=== PATIENT | male | born 1980 | race Caucasian/White ===

== ENCOUNTER 2020-07-20 09:35 | Inpatient (IN) | payer BC ==
[~2020-07-20] VITALS: Ht 180.3 cm; Wt 94.0 kg
[2020-07-20 09:45] VITALS: BP 132/86
[2020-07-20] MEDS ORDERED: MAG HYDROX/ALUMINUM HYD/SIMETH 30 ML ORAL.SUSP PO PRN (10:15)
[2020-07-20] MEDS ORDERED: CALCIUM CARBONATE 500 MG TAB.CHEW PO PRN (10:15)
[2020-07-20] MEDS ORDERED: BISACODYL 10 MG SUPP.RECT. PR PRN (10:15)
[2020-07-20] MEDS ORDERED: ONDANSETRON PF 4 MG/2 ML VIAL. IVP PRN (10:15)
[2020-07-20] MEDS ORDERED: MAGNESIUM HYDROXIDE 2,400 MG/30 ML ORAL.SUSP. PO PRN (10:15)
[2020-07-20] MEDS ORDERED: ACETAMINOPHEN 325 MG TABLET. PO PRN (10:15)
[2020-07-20] MEDS ORDERED: MORPHINE SULFATE 4 MG/ML VIAL. IV PRN (10:15)
--- NOTE | 2020-07-20 10:24 | PDOC1 ---
History and Physical Date of Admission Date of Admission DATE: 07/20/20 TIME: 10:15 History of Present Illness History of Present Illness Patient is a 40-year-old male past medical history hypertension who presents as transfer from [facility] due to intermittent chest pain for the past month, that is worsened over the past 4 days. He reports sharp intermittent left-sided chest pain, 6/10, that radiates to his left arm and back. Associated diaphoresis and shortness of breath. He was scheduled to have an outpatient stress test on 07/29/2020, but presented to the ER instead for evaluation of his symptoms worsened. EKG reviewed without any noted ST changes. Will admit patient for further medical management. Past Medical History Cardiovascular: HTN Past Surgical History Past Surgical History: No pertinent history Family History Family History: Hypertension Social History Smoke: Quit ALCOHOL: occassional Drugs: None Current Medications Current Medications Current Medications Lorazepam (Ativan Inj) 1 mg 1X ONCE IVP ; Start 07/20/20 at 10:15; Stop 07/20/20 at 10:16 Ondansetron HCl (Zofran) 4 mg PRN Q6HRS PRN IVP NAUSEA/VOMITING; Start 07/20/20 at 10:15; Status UNV Al Hydroxide/Mg Hydroxide (Mylanta Plus Xs) 30 ml PRN Q3HRS PRN PO HEARTBURN / GAS; Start 07/20/20 at 10:15; Status UNV Calcium Carbonate/ Glycine (Tums) 500 mg PRN Q3HRS PRN PO UPSET STOMACH; Start 07/20/20 at 10:15; Status UNV Acetaminophen (Tylenol) 650 mg PRN Q6HRS PRN PO Headaches, Temp > 101.5F; Start 07/20/20 at 10:15; Status UNV Magnesium Hydroxide (Milk Of Magnesia) 2,400 mg PRN Q12HR PRN PO CONSTIPATION; Start 07/20/20 at 10:15; Status UNV Bisacodyl (Dulcolax Supp) 10 mg PRN DAILY PRN [place] CONSTIPATION; Start 07/20/20 at 10:15; Status UNV Allergies Allergies: Coded Allergies: No Known Drug Allergies (Unverified , 07/20/20) ROS Review of System GENERAL: Diaphoresis. No history of weight change, weakness or fevers. SKIN: No bruising, hair changes or rashes. EYES: No blurred, double or loss of vision. NOSE AND THROAT: No history of nosebleeds, hoarseness or sore throat. HEART: Chest pain. Denies palpitations. LUNGS: Denies cough, hemoptysis, wheezing or shortness of breath. GASTROINTESTINAL: Denies nausea, vomiting, abdominal pain. GENITOURINARY: Denies dysuria, frequency, urgency, hematuria. NEUROLOGIC: Denies history of numbness, tingling, tremor or weakness. PSYCHIATRIC: Anxiety. Denies depression. ENDOCRINE: No history of heat or cold intolerance, polyuria or polydipsia. EXTREMITIES: Denies muscle weakness, joint pain, pain on walking or stiffness. Physical Exam Physical Exam General: Alert, Oriented X3, Cooperative, moderate distress HEENT: PERRLA, EOMI Lungs: Clear to auscultation, Normal air movement Heart: RRR, no murmurs Cardiovascular: S1, S2 Abdomen: Normal bowel sounds, Soft, No tenderness Extremities: No clubbing, No cyanosis Skin: No rashes, No significant lesion Neuro: Normal speech, Normal tone, Sensation intact Psych/Mental Status: Extremely anxious Vitals Vitals Vital Signs Date Time Temp Pulse Resp B/P (MAP) Pulse Ox O2 Delivery O2 Flow Rate FiO2 07/20/20 09:45 98.2 91 18 132/86 (101) 100 Room Air 98.2 VTE Prophylaxis Ordered VTE Prophylaxis Devices: Yes VTE Pharmacological Prophylaxi: No Assessment/Plan Assessment/Plan Unstable angina Hypertension Plan: Will admit patient with cardiology consult Morphine, Ativan as needed Stress test today Further cardiac work-up pending stress test Resume home medications FEN - Cardiac diet PPX - SCDs FULL CODE Dispo - inpatient for above Justifications for Admission Other Justification LAITH GREENE MD Jul 20, 2020 10:23
[2020-07-20] MEDS ORDERED: LORA0.5T96 PO (12:44)
[2020-07-20] MEDS ORDERED: LOSA100T14 PO (12:44)
--- NOTE | 2020-07-20 14:35 | RAD ---
MR#: [id number] Date of Study: 07/20/2020 Ordering Physician: ALICIA BLAKELY, Referring Physician: MONAE BRANCH Tech: RT Keren Rose) (N) APPROVED REPORT Test Type: Exercise Stress Nurse/Tech: Delaney Clancy R.N. Test Indications: c/p Cardiac History: htn, Medications: See Electronic Medical Record Medical History: See Electronic Medical Record Resting ECG: SR Resting Heart Rate: 87 bpm Resting Blood Pressure: 130/86mmHg Pretest Chest Pain: Typical angina Nurse/Tech Notes S1S2, lungs CTA Consent: The procedure was explained to the patient in lay terms. Informed consent was witnessed. Xiang eout was entered into [employer]. History and Stress Test performed by RT Keren Rose) (N) Pharm. Details Stress Symptoms SOA, continued c/p same as baseline POST EXERCISE Reason for Termination: Reached target heart rate Target HR: Yes Max HR: 161 bpm 90% of Maximum Predicted HR: 179 bpm Exercise duration: 9 min:sec, 3 Stage Exercise capacity: 10.0METs Max Blood Pressure: 156/79mmHg Blood Pressure response to exercise: Normal blood pressure response during stress. Heart Rate response to exercise: wnl Chest Pain: Yes. no increase from baseline scale 5/10 Arrhythmia: No. INTERPRETATION Stress EKG Conclusion: The resting EKG shows a sinus rhythm with mild nonspecific ST-T wave changes. The stress EKG shows no significant changes from baseline. No EKG evidence of stress-induced ischemia. Imaging Protocol IMAGE PROTOCOL: Rest Tc-99m/stress Tc-99m 1 day Rest: Stress: Viability: Radiopharm.Tc99m AvybsbsagIa94a Sestamibi Dose10.1mCi 31.5mCi Duration 15min. 10min. Img Date 07/20/2020 07/20/2020 Inj-Img [id number]. 45min. Post-Injection Exercise: 1 minute Rest Admin Site:IV - Left AntecubitalAdministrator:RT Keren Rose)(N) Stress Admin Site: IV - Left AntecubitalAdministrator: Dary Carlos, RT (R)(N) STRESS DATA End Diast. Vol.99.0mlAv. Heart Jcyu675.0bpm End Syst. Vol.26.0mlCO Index BSA0.0L/min Myocardial Date965.0gEject. Oaxpwata16.0% Stress Rates Pk. Fill Rate4.67EDV/secLVtime Pk. Fill 171.47msec Pk. Empty Rate6.25ESV/secLVtime Pk. Eject87.53msec 06/30 Pk. Fill1.43EDV/sec Stress Scores Regional WT0.00Summed WT3.00 Regional WM0.00Summed WM0.00 LV Perfusion The stress scans showed no significant defects. The rest scans showed no significant defects. Nuclear imaging shows no reversible ischemia or infarct. Wall Motion Left ventricular systolic function is normal with no regional wall motion abnormalities and an ejecti on fraction of greater than 70%. LV Perf. Quant 17 Seg. SSS0.00 17 Seg. SRS0.00 17 Seg. SDS0.00 Stress Defect Extent (% LAD)0.00Rest Defect Extent (% LAD)0.00Rev. Defect Extent (% LAD)0.00 Stress Defect Extent (% LCX) 0.00Rest Defect Extent (% LCX)0.00Rev. Defect Extent (% LCX)0.00 Stress Defect Extent (% RCA)0.00Rest Defect Extent (% RCA)0.00Rev. Defect Extent (% RCA)0.00 Stress Defect Extent (% MIKA)0.00Rest Defect Extent (% MIKA)0.00Rev. Defect Extent (% MIKA)0.00 Conclusion 1. Good exercise tolerance with the patient walking for 9 minutes on a Berry protocol. 2. No EKG evidence of stress-induced ischemia. 3. Nuclear imaging shows no reversible ischemia or infarct. 4. Normal left ventricular systolic function with no regional wall motion abnormalities and an ejecti on fraction of greater than 70%. 5. Low risk treadmill nuclear stress test. Signed by : Alicia Blakely MD Electronically Approved : 07/20/2020 14:34:45
[2020-07-20 15:00] VITALS: BP 102/67
--- NOTE | 2020-07-20 15:07 | PDOC2 ---
CONSULT Date of Consult Date of Consult DATE: 07/20/20 TIME: 15:03 Reason for Consult Reason for Consult: Chest pain Referring Physician Referring Physician: Dr. Tovar Identification/Chief Complaint Chief Complaint Chest pain Source Source: Chart review, Patient History of Present Illness Reason for Visit: The patient is a 40-year-old male who reports episodes of increasing chest pain over the past 5 to 7 days. Patient has had previous episodes of chest pain and was scheduled for a stress test in approximately a week. However with his increased chest pain he went to the emergency room at [facility]. Initial work-up there was negative with no acute EKG changes and no evaluation troponin. [place]. This morning he continues to have pain. The pain is however somewhat increased with motion of his left shoulder. His EKG shows no acute ischemic changes. Past Medical History Cardiovascular: HTN Past Surgical History Past Surgical History: No pertinent history Family History Family History: Hypertension Social History Quit ALCOHOL: occassional Drugs: None Current Medications Current Medications Current Medications Lorazepam (Ativan Inj) 1 mg 1X ONCE IVP Last administered on 07/20/20at 10:25; Start 07/20/20 at 10:15; Stop 07/20/20 at 10:25; Status DC Ondansetron HCl (Zofran) 4 mg PRN Q6HRS PRN IVP NAUSEA/VOMITING; Start 07/20/20 at 10:15 Al Hydroxide/Mg Hydroxide (Mylanta Plus Xs) 30 ml PRN Q3HRS PRN PO HEARTBURN / GAS; Start 07/20/20 at 10:15 Calcium Carbonate/ Glycine (Tums) 500 mg PRN Q3HRS PRN PO UPSET STOMACH; Start 07/20/20 at 10:15 Acetaminophen (Tylenol) 650 mg PRN Q6HRS PRN PO Headaches, Temp > 101.5F; Start 07/20/20 at 10:15 Magnesium Hydroxide (Milk Of Magnesia) 2,400 mg PRN Q12HR PRN PO CONSTIPATION; Start 07/20/20 at 10:15 Bisacodyl (Dulcolax Supp) 10 mg PRN DAILY PRN [place] CONSTIPATION; Start 07/20/20 at 10:15 Morphine Sulfate (Morphine Sulfate) 4 mg PRN Q2HR PRN IV PAIN; Start 07/20/20 at 10:15 Lorazepam (Ativan Inj) 1 mg PRN Q4HRS PRN IVP ANXIETY / AGITATION; Start 07/20/20 at 10:15 Active Scripts Active Reported Ativan (Lorazepam) 0.5 Mg Tablet 0.5 Mg PO BID PRN Losartan Potassium 100 Mg Tablet 100 Mg PO DAILY Allergies Allergies: Coded Allergies: No Known Drug Allergies (Unverified , 07/20/20) ROS Cardiovascular: yes Chest Pain Physical Exam General: mild distress HEENT: Atraumatic Lungs: Clear to auscultation Heart: Regular rate Abdomen: Normal bowel sounds Vitals VITALS Vital Signs Date Time Temp Pulse Resp B/P (MAP) Pulse Ox O2 Delivery O2 Flow Rate FiO2 07/20/20 10:00 Room Air 07/20/20 09:45 98.2 91 18 132/86 (101) 100 98.2 Assessment/Plan Assessment/Plan 1. Chest pain. Recurrent episodes of chest pain as above. Pain radiates to his shoulder and is somewhat increased by movement of his shoulder. No acute EKG changes and no elevation of troponin. We will proceed today with a treadmill nuclear stress test to exclude underlying ischemia and to check LV systolic function. This was discussed with the patient. 2. Hypertension. Controlled. Continue present medical treatment. Thank you for allowing us to participate in the care of your patient. ALICIA STODDARD MD Jul 20, 2020 15:07
--- NOTE | 2020-07-20 15:53 | PDOC3 ---
Discharge Summary Visit Information Date of Admission: Jul 20, 2020 Date of Discharge: Jul 20, 2020 Brief Hospital Course Allergies Allergies Coded Allergies Type Severity Reaction Last Updated Verified No Known Drug Allergies 07/20/20 No Vital Signs Vital Signs Date Time Temp Pulse Resp B/P (MAP) Pulse Ox O2 Delivery O2 Flow Rate FiO2 07/20/20 15:00 98.0 93 18 102/67 (79) 97 Room Air 98.0 Brief Hospital Course Mr. Hi is a 40 old male who presented with unstable angina. He had a nuclear medicine stress test with good exercise tolerance with the patient walking for 9 minutes on a Berry protocol, no EKG evidence of stress-induced ischemia, nuclear imaging shows no reversible ischemia or infarct, normal left ventricular systolic function with no regional wall motion abnormalities and an ejection fraction of greater than 70%. Low risk treadmill nuclear stress test. Patient was stable for discharge home with PCP follow-up. Discharge Information Condition at Discharge: Stable Disposition/Orders: D/C to Home Scheduled Losartan Potassium (Losartan Potassium) 100 Mg Tablet, 100 MG PO DAILY for HYPERTENSION, (Reported) Entered as Reported by: Nando Mondragon on 07/20/201243 Last Action: New Order on 07/20/201243 by Nando Mondragon Scheduled PRN Lorazepam (Ativan) 0.5 Mg Tablet, 0.5 MG PO BID PRN for ANXIETY / AGITATION, (Reported) Entered as Reported by: Nando Mondragon on 07/20/201243 Last Action: New Order on 07/20/201243 by Nando Mondragon Justicifation of Admission Dx: Justifications for Admission: Justification of Admission Dx: Yes (Chest pain) LAITH GREENE MD Jul 20, 2020 15:53
--- NOTE | 2020-07-20 16:20 | NUR ---
PATIENT DISCHARGED TO HOME. DISCHARGE INSTRUCTIONS GIVEN. PIV AND HEART MONITOR REMOVED. ESCORTED PATIENT OFF UNIT PER AMBULATION INTO A PRIVATE VEHICLE.
[2020-10-24] MEDS ORDERED: OMEP40CA7 PO (07:58)
== END 2020-07-20 16:20 | disposition home or self-care (01) | DRG 311 ==
LOC: 2 NORTH 09:35
PROVIDERS: ADMIT Family Medicine; ATTEND Family Medicine
DX: I20.0 Unstable angina (principal); I10 Essential (primary) hypertension; F41.9 Anxiety disorder, unspecified; Z82.49 Family history of ischemic heart disease and other diseases of the circulatory system
CPT/HCPCS: 78452; 93017; A9500; J2060; G0378

== ENCOUNTER 2020-10-24 07:11 | Outpatient (CLI) | payer BC ==
[2020-10-24] VITALS (14 sets, daily range): BP systolic 101–128; BP diastolic 55–89
[~2020-10-24] VITALS: Ht 180.3 cm; Wt 95.3 kg
[~2020-10-24 07:11] MED LIST: LORA0.5T96 PO; LOSA100T14 PO
[2020-10-24] MEDS ORDERED: HEPARIN for ARTERIAL LINE 1,500 ML ONE (07:39)
[2020-10-24] MEDS ORDERED: LIDOCAINE 1% PF 2 ML VIAL. ONE (07:39)
[2020-10-24] MEDS ORDERED: IODIXANOL 320 MG/ML 100 ML VIAL. ONE (07:39)
[2020-10-24] MEDS ORDERED: OMEP40CA45 PO (07:58)
[2020-10-24] MEDS ORDERED: VERAPAMIL 5 MG/2 ML VIAL. ONE (07:58)
[2020-10-24] MEDS ORDERED: HEPARIN for IV BOLUS 10,000 UNIT/10 ML VIAL. ONE (07:58)
[2020-10-24] MEDS ORDERED: ASPI-424 PO (07:58)
[2020-10-24] MEDS ORDERED: MIDAZOLAM HCL/PF 2 MG/2 ML VIAL. ONE ×2 (07:58→08:42)
[2020-10-24] MEDS ORDERED: fentaNYL PF VIAL 100 MCG/2 ML VIAL ONE (07:58)
[2020-10-24] MEDS ORDERED: NITROGLYCERIN 200 MCG/2 ML SYRINGE FOR CATH/VASC LAB. ONE (07:59)
[2020-10-24 08:01] LABS: HEMATOCRIT 42.7 % (39.0-53.0); HEMOGLOBIN 14.6 g/dL (13.0-17.5); RED BLOOD COUNT 4.71 x10^6/uL (4.30-5.70); RED CELL DISTRIBUTION WIDTH 13.5 % (11.5-14.5); WHITE BLOOD COUNT 6.2 x10^3/uL (4.0-11.0)
[2020-10-24 08:10] LABS: PROTHROMBIN TIME PATIENT 11.8 SEC (11.7-14.0)
[2020-10-24 08:11] LABS: CALCIUM 8.5 mg/dL (8.5-10.1); CREATININE 0.9 mg/dL (0.7-1.3); POTASSIUM 3.9 mmol/L (3.5-5.1)
[2020-10-24] MEDS ORDERED: LIDOCAINE 1% PF 2 ML VIAL. INJ ONE (08:15)
[2020-10-24] MEDS ORDERED: IODIXANOL 320 MG/ML 100 ML VIAL. IART ONE (08:15)
[2020-10-24] MEDS ORDERED: HEPARIN for IV BOLUS 10,000 UNIT/10 ML VIAL. IART ONE (08:15)
[2020-10-24] MEDS ORDERED: MIDAZOLAM HCL/PF 2 MG/2 ML VIAL. IV ONE (08:15)
[2020-10-24] MEDS ORDERED: fentaNYL PF VIAL 100 MCG/2 ML VIAL IV ONE (08:15)
[2020-10-24] MEDS ORDERED: NITROGLYCERIN 200 MCG/2 ML SYRINGE FOR CATH/VASC LAB. IART ONE (08:15)
[2020-10-24] MEDS ORDERED: VERAPAMIL 5 MG/2 ML VIAL. IART ONE (08:15)
--- NOTE | 2020-10-24 09:54 | CARD ---
MR#: [id number] Date of Study: 10/24/2020 Ordering Physician: RAHAT CONNOLLY, Referring Physician: RAHAT CONNOLLY, Tech: RT Leo(R)() APPROVED REPORT Technologist: RT Leo(R)() Nurse: Soraida Duran RN Procedure(s) performed: fl time: 5.2 mins dose: 61 gycm2 contrast: 62 ml moderate sedation: 30 minutes LHC, Coronary angiography, iFR of the LAD [facility] Clinical Frailty Scale [facility] Clinical Frailty Scale: Managing Well Heart Failure Heart Failure: No CASE TECHNIQUE IV conscious sedation was used throughout procedure with appropriate monitoring and was performed in the presence of a registered nurse who was an independent trained observer other than the physician p erforming the procedure. During this case, Fluoroscopy and low osmolar contrast were used for imaging . Specimen(s) Removed: N/A Estimated Blood loss: 15 cc's. PROCEDURE NARRATIVE Clinical information: 40 y.o male presenting to the [facility] with abnormal CT coronary angiography for further evaluation o f chest pain and 50% proximal LAD stenosis. Informed consent: Written informed consent was obtained from the patient after adequate discussion of the risks and clara efits of the procedure. Procedure details: ACCESS: The right wrist was prepped and draped in usual sterile fashion. Under 1% lidocaine local anesthesia a 6 Spanish [employer] sheath was placed in the right radial artery via the Seldinger technique. DIAGNOSTIC ANGIOGRAPHY: Right and left coronary arteries were engaged with a 6 Spanish TIG catheter. Diagnostic angiography i n multiple views were obtained. Next, a 6 Spanish TIGl catheter was placed in the left ventricle and a LVEDP was measured. A pullback was performed. All catheters were exchanged over J-tip guidewire. FINDINGS: ======= Aorta: 110/80 LVEDP: 5 mmHg Left ventriculogram: Deferred due to known normal EF of 55%. Coronary angiography: LM: Large caliber vessel with normal angiographic appearance LAD: Large caliber vessel with a proximal 40-50% eccentric stenosis. D1: Small caliber vessel with normal angiographic appearance LCX: Moderate caliber non-dominant vessel with mild luminal irregularities OM1: Moderate caliber vessel with normal angiographic appearance RCA: Large caliber dominant vessel with mild luminal irregularities RPDA: Moderate caliber vessel with mild luminal irregularities. INTERVENTIONAL TECHNIQUE: Due to the patient's persistent chest pain, CT coronary angiography demonstrating a 50 to 60% proxima l LAD stenosis which angiographically appeared to be closer to 30% a decision was made to further adniel luate the vessel for ischemia. Heparin was used for anticoagulation. Through a 6 Spanish EBU 3.5 chidi de catheter a 0.014 inch pressure wire was advanced to the distal LAD after appropriate normalization and intracoronary glycerin administration. And IFR was obtained at 0.92. A pullback gradient confi rmed the value. Given the nonsignificant value of 0.92 further intervention was deferred. Final ang iography demonstrated no acute guide or wire related complications. CLOSURE: At case completion the right radial sheath was removed and a Terumo radial band was applied with 11 m L of air. Hemostasis was achieved. COMPLICATIONS: No acute complications noted Conclusion 1. Normal left-sided filling pressures 2. One-vessel coronary artery disease with nonobstructive proximal LAD stenosis 3. Negative IFR of the LAD stenosis Recommendations 1. Aggressive medical therapy and consideration of non cardiac causes of chest pain. Signed by : Rahat Connolly, Electronically Approved : 10/24/2020 09:53:54
--- NOTE | 2020-10-24 12:22 | NUR ---
pt A& Ox4. VSS. Rt radial site TR band removed. no bleeding, site cleaned and dry dressing applied. armboard reapplied. tolerating po well. ambulated to bathroom w/o problem. d/c instructions given and questions answered. out to vehicle per w/c. his to drive him home.
== END 2020-10-24 12:10 | disposition home or self-care (01) ==
LOC: CCL 07:11
PROVIDERS: ATTEND Internal Medicine Cardiovascular Disease
DX: R07.9 Chest pain, unspecified (principal); I25.10 Atherosclerotic heart disease of native coronary artery without angina pectoris; I10 Essential (primary) hypertension; K21.9 Gastro-esophageal reflux disease without esophagitis; F41.9 Anxiety disorder, unspecified; Z87.891 Personal history of nicotine dependence; Z79.82 Long term (current) use of aspirin; Z79.899 Other long term (current) drug therapy; Z98.890 Other specified postprocedural states
CPT/HCPCS: 36415; 80048; 85027; 85610; 93458; 93571; 99152; 99153; C1769; C1887; C1894; J1644; J2250; J3010; J3490; Q9967